=== PATIENT | female | born 1995 | race Caucasian/White ===

== ENCOUNTER 2019-10-20 11:11 | Emergency (ER) | payer OTHER, SELFPAY ==
[2019-10-20 11:21] VITALS: BP 113/79; PULSE 72; RESP 18; TEMP 36.6; O2SAT 100
--- NOTE | 2019-10-20 11:39 | ED.GENADULT ---
HPI - General Adult General Chief complaint: Urogenital-Female Stated complaint: urgency to urinate/burning/pain on sides Time Seen by Provider: 10/20/19 11:39 Source: patient Mode of arrival: ambulatory History of Present Illness HPI narrative: Becki Avila is a 24 yo female with a hx of multiple uti, who is here for dysuria and blood in urine this AM. Has had symptoms for the last 4 days, sometimes has urgency especially at night, has been trying to drink water and use cranberry but has not solved the issue this morning had difficulty voiding Related Data Allergies Allergy/AdvReac Type Severity Reaction Status Date / Time No Known Allergies Allergy Verified 10/20/19 11:53 Review of Systems Review of Systems: Narrative: CONSTITUTIONAL: Denies fever, chills, sweats. EYES: Denies visual changes, redness, discharge. ENT: Denies rhinorrhea, congestion, sore throat, otalgia. CARDIOVASCULAR: Denies chest pain, palpitations, edema. RESPIRATORY: Denies dyspnea, wheezing, cough GASTROINTESTINAL: Denies abdominal pain, nausea, vomiting, diarrhea. GENITOURINARY: Has dysuria, has hematuria, no abnormal discharge SKIN: Denies rash or itching. NEUROLOGIC: Denies numbness, or focal weakness. PSYCHIATRIC: Denies anxiety or depression. [facility] Past Medical History Medical History UTI (urinary tract infection) Family History Family History Other Heart disease Hypertension Social History Social History (Updated 10/20/19 @ 11:52 by Michell Wilkins CNP) Smoking status: Never smoker Alcohol intake: former Comments At time of signature, I agree with nursing past medical, surgical, social and family history. There is no relevant family history pertinent to the presenting complaint. Exam Narrative: Exam Narrative: GENERAL: This is a well-nourished, well-developed patient, in mild distress. HEAD: normocephalic, atraumatic. EYES: Sclera clear/white. Vision is grossly intact. EARS: External ears normal. Hearing grossly intact. NOSE: External nose normal without nasal discharge, nares without redness, no rhinorrhea. THROAT: Mucous membranes moist, NECK: Neck supple, non-tender CARDIOVASCULAR: Regular rate and rhythm without murmurs, gallops, or rubs. RESPIRATORY: Clear to auscultation. Breath sounds equal bilaterally. No wheezes, rales, or rhonchi. GASTROINTESTINAL: Abdomen soft, non-tender, SKIN: warm, intact with no suspicious lesions or rash, good texture and turgor. NEURO: awake, alert, and oriented to person, place and time. There were no obvious focal neurologic abnormalities. Steady gait EXTREMITIES: Normal range of motion. BACK: Nontender without deformity Course Course Emergency Course: UA shows trace leukocytes and protein Patient started on Keflex; to follow-up with [employer] or general practitioner when she returns home to [place] Vital Signs Vital signs: Vital Signs Temperature 98 F 10/20/19 11:21 Pulse Rate 72 10/20/19 11:21 Respiratory Rate 18 10/20/19 11:21 Blood Pressure 113/79 10/20/19 11:21 Pulse Oximetry 100 10/20/19 11:21 Temperature 98 F 10/20/19 11:21 Pulse Rate 72 10/20/19 11:21 Respiratory Rate 18 10/20/19 11:21 Blood Pressure 113/79 10/20/19 11:21 Pulse Oximetry 100 10/20/19 11:21 Medical Decision Making Differential Diagnosis Differential Diagnosis: UTI versus cystitis versus abnormal vaginal discharge Vital Signs Vital Signs: Vital Signs Temperature 98 F 10/20/19 11:21 Pulse Rate 72 10/20/19 11:21 Respiratory Rate 18 10/20/19 11:21 Blood Pressure 113/79 10/20/19 11:21 Pulse Oximetry 100 10/20/19 11:21 Temperature 98 F 10/20/19 11:21 Pulse Rate 72 10/20/19 11:21 Respiratory Rate 18 10/20/19 11:21 Blood Pressure 113/79 10/20/19 11:21 Pulse Oximetry 100 10/20/19 11:21 Lab Data Labs: Urine
== END 2019-10-20 12:15 | disposition home or self-care (01) ==
PROVIDERS: Emergency Provider Nurse Practitioner
DX: N39.0 Urinary tract infection, site not specified (principal)
CPT/HCPCS: 81003; 87077; 87086; 87088; 87186; 99213; G0463